=== PATIENT | female | born 1960 | race Hispanic/Latino ===

== ENCOUNTER 2018-12-11 17:00 | Outpatient (RCR) | payer OTHER | END 2018-12-14 | LOC: PT 17:00 | PROVIDERS: ATTEND Specialist | DX: M75.42 Impingement syndrome of left shoulder (principal); M70.62 Trochanteric bursitis, left hip; M62.81 Muscle weakness (generalized) ==

== ENCOUNTER 2019-01-12 17:00 | Outpatient (RCR) | payer OTHER | END 2019-01-13 | LOC: PT 17:00 | PROVIDERS: ATTEND Specialist | DX: M75.42 Impingement syndrome of left shoulder (principal); M70.62 Trochanteric bursitis, left hip; M62.81 Muscle weakness (generalized) ==

== ENCOUNTER 2019-02-25 11:53 | Emergency (ER) | payer OTHER ==
[~2019-02-25] VITALS: Ht 170.2 cm; Wt 104.3 kg
--- OUTSIDE RECORDS SUMMARY | 2019-02-25 11:56 | XMS REPORT ---
[facility] Phone Unavailable Care Team Providers Care Regional Marketing Manager Name Role Phone Unavailable Unavailable Problems This patient has no known problems. Allergies, Adverse Reactions, Alerts This patient has no known allergies or adverse reactions. Medications This patient has no known medications. Results Test Description Test Time Test Comments Text Results Atomic Results Result Comments SCR MAMM BILATERAL VICKY CAD DIGITAL 2019-02-13 10:16:18 - SCR MAMM BILATERAL VICKY CAD DIGITALBILATERAL DIGITAL SCREENING MAMMOGRAM 3D/2D WITH CAD: 02/13/2019CLINICAL: Asymptomatic. Digital breast tomosynthesis was performed in addition to routine CC and MLO views. Current mammographic images were evaluated by either a [employer] or a [employer] ImageChecker CAD (computer aided detection system). Comparison is made to exams dated 07/13/2017 mammogram, mammogram, and 03/11/2015 mammogram - [facility]. There are scattered fibroglandular tissues in both breasts. Status post mastectomy right side. There are benign calcifications in the left breast. There also are benign intramammary nodes in the left breast. No suspicious mass, architectural distortion, malignant type calcification, or lymph node abnormality detected. Breast architecture is stable compared to prior exams.IMPRESSION: BENIGNThere is no mammographic evidence of malignancy. Resume annual screening mammography in one year. Frank Souza M.D. ss/:02/13/2019 10:16:18 copy to: [facility], [facility], ph: [phone], fax: [phone] to: German Ortega MD, [facility], Dr.Fernando Ortega, ph: [phone], fax: [phone] Technologist: Belinda JENSEN, [facility] sent: BIRADS 1-2 Normal Mammogram BI-RADS: 2 Benign
[2019-02-25] MEDS ORDERED: TYLENOL WITH C1 EACH PO (15:27)
--- NOTE | 2019-02-25 15:29 | Diagnostic Imaging Report ---
Exam: Right knee series; 3 views History: Hurt knee Comparison: None available Findings: Irregularity of the tibial spine may represent an age indeterminant avulsion. There is a joint effusion. Joint effusion and irregularity of the tibial spine may represent secondary signs of a cruciate ligament injury. Consider MRI if there are signs of internal arrangement. Degenerative spurring of the superior aspect of the patella. Impression: Irregularity of the tibial spine and a joint effusion. Signed by: Dr. Axel Salinas DO on 02/25/2019 3:26 PM
--- NOTE | 2019-02-25 16:15 | NUR ---
PATIENT REFUSED CRUTCHES. WILL USE THE ONES SHE HAS AT HOME
== END 2019-02-25 16:19 | disposition home or self-care (01) ==
LOC: ER 11:53
DX: S83.91XA Sprain of unspecified site of right knee, initial encounter (principal); X50.1XXA Overexertion from prolonged static or awkward postures, initial encounter; Y92.89 Other specified places as the place of occurrence of the external cause; I10 Essential (primary) hypertension; E11.9 Type 2 diabetes mellitus without complications; K21.9 Gastro-esophageal reflux disease without esophagitis; E78.5 Hyperlipidemia, unspecified; Z85.3 Personal history of malignant neoplasm of breast; M25.461 Effusion, right knee
CPT/HCPCS: 99284

== ENCOUNTER 2019-04-14 16:00 | Outpatient (RCR) | payer OTHER ==
[~2019-04-14 16:00] MED LIST: TYLENOL WITH C1 EACH PO
== END 2019-04-15 ==
LOC: PT 16:00
PROVIDERS: ATTEND Specialist
DX: M23.91 Unspecified internal derangement of right knee (principal); S83.91XA Sprain of unspecified site of right knee, initial encounter; M75.42 Impingement syndrome of left shoulder; M62.81 Muscle weakness (generalized)

== ENCOUNTER 2019-05-06 17:00 | Outpatient (RCR) | payer OTHER | END 2019-05-16 | LOC: PT 17:00 | PROVIDERS: ATTEND Specialist | DX: M23.91 Unspecified internal derangement of right knee (principal); S83.91XA Sprain of unspecified site of right knee, initial encounter; M75.42 Impingement syndrome of left shoulder; M62.81 Muscle weakness (generalized) ==

== ENCOUNTER 2019-06-03 17:00 | Outpatient (RCR) | payer OTHER | END 2019-06-15 | LOC: PT 17:00 | PROVIDERS: ATTEND Specialist | DX: M23.91 Unspecified internal derangement of right knee (principal); S83.91XA Sprain of unspecified site of right knee, initial encounter; M75.42 Impingement syndrome of left shoulder | CPT/HCPCS: 97139 ==

== ENCOUNTER 2020-07-15 08:00 | Outpatient (RCR) | payer OTHER | END 2020-07-16 | LOC: PT 08:00 | PROVIDERS: ATTEND Specialist | DX: S46.091A Other injury of muscle(s) and tendon(s) of the rotator cuff of right shoulder, initial encounter (principal) ==

== ENCOUNTER 2020-07-19 17:11 | Outpatient (RCR) | payer OTHER | END 2020-08-15 | LOC: PT 17:11 | PROVIDERS: ATTEND Specialist | DX: S46.091A Other injury of muscle(s) and tendon(s) of the rotator cuff of right shoulder, initial encounter (principal) ==

== ENCOUNTER 2022-01-01 07:58 | Outpatient (RCR) | payer OTHER | END 2022-01-13 | LOC: PT 07:58 | PROVIDERS: ATTEND Specialist | DX: S46.011A Strain of muscle(s) and tendon(s) of the rotator cuff of right shoulder, initial encounter (principal) ==

== ENCOUNTER 2022-02-02 09:00 | Outpatient (RCR) | payer OTHER | END 2022-02-13 | LOC: PT 09:00 | PROVIDERS: ATTEND Specialist | DX: S46.011A Strain of muscle(s) and tendon(s) of the rotator cuff of right shoulder, initial encounter (principal) | CPT/HCPCS: 97139 ==